=== PATIENT | female | born 1980 | race Caucasian/White ===

== ENCOUNTER 2016-11-12 01:10 | Emergency (ER) | payer BC ==
[~2016-11-12] VITALS: Ht 157.4 cm; Wt 61.7 kg
[~2016-11-12 01:10] MED LIST: ALAVERT D-12 HO1 T12 PO; KENALOG0.5% TP; PREDNISONE10 MG PO; VISTARIL50 MG PO
[2016-11-12] MEDS ORDERED: AUGMENTIN 875-875 MG PO (01:22)
== END 2016-11-12 02:45 | disposition home or self-care (01) ==
LOC: ED 01:10
DX: S61.253A Open bite of left middle finger without damage to nail, initial encounter (principal); W54.0XXA Bitten by dog, initial encounter; Y93.89 Activity, other specified; Y92.9 Unspecified place or not applicable; Y99.9 Unspecified external cause status

== ENCOUNTER → 2019-11-14 | Outpatient (CLI) | payer OTHER ==
[~2019-11-14] MED LIST changes: +AUGMENTIN 875-875 MG PO
== END | disposition home or self-care (01) ==
LOC: CT 08:44
DX: Q07.00 Arnold-Chiari syndrome without spina bifida or hydrocephalus (principal); Z98.890 Other specified postprocedural states

== ENCOUNTER 2019-12-20 18:16 | Emergency (ER) | payer OTHER ==
[~2019-12-20] VITALS: Ht 154.9 cm; Wt 61.7 kg
== END 2019-12-20 22:06 | disposition home or self-care (01) ==
LOC: ED 18:16
DX: T63.441A Toxic effect of venom of bees, accidental (unintentional), initial encounter (principal); J45.909 Unspecified asthma, uncomplicated; F32.9 Major depressive disorder, single episode, unspecified; Z88.8 Allergy status to other drugs, medicaments and biological substances; Z91.030 Bee allergy status; Y92.89 Other specified places as the place of occurrence of the external cause

== ENCOUNTER 2020-08-21 15:25 | Emergency (ER) | payer OTHER | END 2020-08-21 17:15 | disposition home or self-care (01) | LOC: ED 15:25 | DX: T63.441A Toxic effect of venom of bees, accidental (unintentional), initial encounter (principal); T78.2XXA Anaphylactic shock, unspecified, initial encounter; F17.200 Nicotine dependence, unspecified, uncomplicated; Z91.030 Bee allergy status; Z88.8 Allergy status to other drugs, medicaments and biological substances; Z79.899 Other long term (current) drug therapy; X58.XXXA Exposure to other specified factors, initial encounter ==

== ENCOUNTER 2020-08-22 00:52 | Emergency (ER) | payer OTHER ==
[~2020-08-22] VITALS: Wt 57.2 kg
== END 2020-08-22 03:44 | disposition home or self-care (01) ==
LOC: ED 00:52
DX: T78.40XA Allergy, unspecified, initial encounter (principal); Z91.030 Bee allergy status; Z88.8 Allergy status to other drugs, medicaments and biological substances; Z79.899 Other long term (current) drug therapy; X58.XXXA Exposure to other specified factors, initial encounter

== ENCOUNTER 2020-12-12 16:29 | Emergency (ER) | payer OTHER ==
[~2020-12-12] VITALS: Wt 59.0 kg
[2020-12-12] MEDS ORDERED: SEPTDS PO (18:56)
[2020-12-12] MEDS ORDERED: CEPHALEXIN500 M1 PO (18:56)
== END 2020-12-12 19:15 | disposition home or self-care (01) ==
LOC: ED 16:29
DX: L02.01 Cutaneous abscess of face (principal); Z98.51 Tubal ligation status

== ENCOUNTER 2021-08-28 19:42 | Emergency (ER) | payer OTHER ==
[~2021-08-28] VITALS: Ht 154.9 cm; Wt 59.0 kg
[~2021-08-28 19:42] MED LIST changes: +CEPHALEXIN500 M1 PO; +SEPTDS PO
[2021-08-28 20:23] LABS: BILIRUBIN 1+ (Negative); BLOOD 3+ (Negative); CLARITY Cloudy (Clear); COLOR Orange (Yellow); GLUCOSE Negative (Negative); KETONE Negative (Negative); LEUKO ESTERASE 2+ (Negative); NITRITE Positive (Negative)
[2021-08-28 20:48] LABS: BACTERIA 3+; MUCOUS 2+; RBC TNTC rbc/hpf (0-2)
[2021-08-28] MEDS ORDERED: CEPHALEXIN500 M1 PO (21:20)
== END 2021-08-28 21:20 | disposition home or self-care (01) ==
LOC: ED 19:42
PROVIDERS: Emergency Medicine
DX: N39.0 Urinary tract infection, site not specified (principal)

== ENCOUNTER 2021-12-25 19:54 | Emergency (ER) | payer OTHER ==
[~2021-12-25] VITALS: Ht 152 cm; Wt 59.9 kg
[2021-12-26] MEDS ORDERED: PREDNISONE20 M1 PO (16:22)
[2021-12-26] MEDS ORDERED: EPIPEN 2-P0.3 MG/0.3 IJ (16:22)
== END 2021-12-25 22:51 | disposition home or self-care (01) ==
LOC: ED 19:54
DX: T78.2XXA Anaphylactic shock, unspecified, initial encounter (principal); Y92.89 Other specified places as the place of occurrence of the external cause

== ENCOUNTER 2021-12-26 14:07 | Emergency (ER) | payer OTHER ==
[~2021-12-26] VITALS: Wt 59.9 kg
[2021-12-26 15:01] LABS: BASO % 0.1 % (0.0-1.0); HEMATOCRIT 41.2 % (37.0-47.0); LYMPH # 0.7 10*3/uL (1.3-4.4); LYMPH % 5.1 % (27.0-41.0); MEAN CELL VOLUME 93.6 fl (81.0-99.0); MEAN CORPUSCULAR HGB 32.7 pg (27.0-31.0); MEAN PLATELET VOLUME 9.9 fl (9.6-12.3); MONO # 0.7 10*3/uL (0.1-1.0); MONO % 4.6 % (3.0-9.0); NEUT # 12.7 10*3/uL (2.3-7.9); NEUT % 89.8 % (47.0-73.0); PLATELET COUNT AUTOMATED 253 10*3/uL (130-400); RED CELL DISTRI WIDTH 11.8 % (0-14.5); WHITE BLOOD COUNT 14.1 10*3/uL (4.8-10.8)
[2021-12-26 15:42] LABS: ALKALINE PHOSPHATASE 50 U/L (45-117); BUN 11 mg/dl (7-24); CHLORIDE 109 mmol/L (98-107); CREATININE 0.87 mg/dL (0.55-1.02); LIPASE 99 U/L (73-393); POTASSIUM 3.5 mmol/L (3.5-5.1); SGOT/AST 11 IU/L (3-35); SGPT/ALT 15 U/L (12-78); SODIUM 139 mmol/L (136-145)
[2021-12-26 15:46] LABS: BETA-HCG, QUANT < 1.0 mIU/mL (1-3)
[2021-12-26] MEDS ORDERED: PREDNISONE20 M1 PO (16:22)
[2021-12-26] MEDS ORDERED: EPIPEN 2-P0.3 MG/0.3 IJ (16:22)
== END 2021-12-26 16:30 | disposition home or self-care (01) ==
LOC: ED 14:07
PROVIDERS: Emergency Medicine
DX: T78.40XA Allergy, unspecified, initial encounter (principal); Z98.51 Tubal ligation status; X58.XXXA Exposure to other specified factors, initial encounter

== ENCOUNTER 2023-02-18 19:11 | Emergency (ER) | payer BC, OTHER ==
[~2023-02-18] VITALS: Ht 154.9 cm; Wt 72.6 kg
[~2023-02-18 19:11] MED LIST changes: +EPIPEN 2-P0.3 MG/0.3 IJ; +PREDNISONE20 M1 PO
[2023-02-18] MEDS ORDERED: MELOXICAM5 MG PO (20:10)
== END 2023-02-18 20:15 | disposition home or self-care (01) ==
LOC: ED 19:11
DX: S46.912A Strain of unspecified muscle, fascia and tendon at shoulder and upper arm level, left arm, initial encounter (principal); M54.2 Cervicalgia; F32.A Depression, unspecified; J45.909 Unspecified asthma, uncomplicated; M79.7 Fibromyalgia; D64.9 Anemia, unspecified; Z88.8 Allergy status to other drugs, medicaments and biological substances; Z91.012 Allergy to eggs; Z91.018 Allergy to other foods; Z98.51 Tubal ligation status; X58.XXXA Exposure to other specified factors, initial encounter; Y93.89 Activity, other specified; Y92.89 Other specified places as the place of occurrence of the external cause; Y99.8 Other external cause status

== ENCOUNTER → 2023-02-23 | Outpatient (CLI) | payer BC, OTHER ==
[~2023-02-23] MED LIST changes: +MELOXICAM5 MG PO
== END | disposition home or self-care (01) ==
LOC: RAD 10:33
PROVIDERS: ATTEND Family Medicine
DX: M25.511 Pain in right shoulder (principal)

== ENCOUNTER 2023-04-07 16:37 | Emergency (ER) | payer BC, OTHER ==
[~2023-04-07] VITALS: Ht 154.9 cm; Wt 64.4 kg
== END 2023-04-07 17:02 | disposition left against medical advice (07) ==
LOC: ED 16:37
DX: R07.81 Pleurodynia (principal); R11.2 Nausea with vomiting, unspecified; R19.7 Diarrhea, unspecified; Z91.012 Allergy to eggs; Z91.018 Allergy to other foods; Z53.21 Procedure and treatment not carried out due to patient leaving prior to being seen by health care provider

== ENCOUNTER 2023-04-10 21:57 | Emergency (ER) | payer BC, OTHER ==
[~2023-04-10] VITALS: Ht 154.9 cm; Wt 64.4 kg
[2023-04-10] MEDS ORDERED: OMEPRAZOLE MAGN20 M2 PO (22:13)
[2023-04-10] MEDS ORDERED: EPIPEN 2-P0.3 MG/0.3 IJ (22:14)
[2023-04-10] MEDS ORDERED: PROVENTIL HFA6.7 GM INH (22:15)
[2023-04-10 22:30] LABS: BASO # 0.1 10*3/uL (0.0-0.1); BASO % 0.7 % (0.0-1.0); EOS # 0.4 10*3/uL (0.0-0.4); EOS % 4.7 % (1.0-4.0); HEMATOCRIT 39.9 % (37.0-47.0); LYMPH # 2.1 10*3/uL (1.3-4.4); LYMPH % 23.2 % (27.0-41.0); MEAN CELL VOLUME 95.2 fl (81.0-99.0); MEAN CORPUSCULAR HGB 32.7 pg (27.0-31.0); MEAN CORPUSCULAR HGB CONC 34.3 g/dl (33.0-37.0); MEAN PLATELET VOLUME 9.7 fl (9.6-12.3); MONO # 0.7 10*3/uL (0.1-1.0); MONO % 7.6 % (3.0-9.0); NEUT # 5.8 10*3/uL (2.3-7.9); NEUT % 63.5 % (47.0-73.0); PLATELET COUNT AUTOMATED 249 10*3/uL (130-400); RED BLOOD COUNT 4.19 10*6/uL (4.10-5.10); WHITE BLOOD COUNT 9.1 10*3/uL (4.8-10.8)
[2023-04-10 22:43] LABS: BILIRUBIN Negative (Negative); BLOOD 1+ (Negative); CLARITY Clear (Clear); COLOR Yellow (Yellow); GLUCOSE Negative (Negative); KETONE Trace (Negative); LEUKO ESTERASE Negative (Negative); NITRITE Negative (Negative); PH 6.5 (4.5-8.0); SPECIFIC GRAVITY <= 1.005 (1.001-1.030)
[2023-04-10 22:45] LABS: ACT PARTIAL THROMBO TIME 25.7 SECONDS (20.0-32.1)
[2023-04-10 22:52] LABS: ALKALINE PHOSPHATASE 53 U/L (46-116); BUN 7 mg/dl (9-23); CHLORIDE 105 mmol/L (98-107); LIPASE 32 U/L (12-53); POTASSIUM 3.3 mmol/L (3.4-5.1); SGPT/ALT 7 U/L (5-49); TOTAL PROTEIN 6.8 gm/dL (6.0-8.0)
[2023-04-10 22:56] LABS: WBC 0-2 wbc/hpf (0-5)
[2023-04-11] MEDS ORDERED: CIPRO500 MG PO (01:12)
[2023-04-11] MEDS ORDERED: METRONIDAZOLE500 M1 PO (01:12)
== END 2023-04-11 01:15 | disposition home or self-care (01) ==
LOC: ED 21:57
PROVIDERS: Internal Medicine
DX: K52.9 Noninfective gastroenteritis and colitis, unspecified (principal); R11.2 Nausea with vomiting, unspecified; F17.200 Nicotine dependence, unspecified, uncomplicated; Z91.018 Allergy to other foods; Z91.012 Allergy to eggs; Z79.899 Other long term (current) drug therapy; Z98.51 Tubal ligation status

== ENCOUNTER → 2024-08-25 | Outpatient (CLI) | payer BC ==
[~2024-08-25] MED LIST changes: +CIPRO500 MG PO; +METRONIDAZOLE500 M1 PO; +OMEPRAZOLE MAGN20 M2 PO; +PROVENTIL HFA6.7 GM INH
[2024-08-25 08:05] LABS: BASO # 0.1 10*3/uL (0.0-0.1); BASO % 0.7 % (0.0-1.0); EOS # 0.8 10*3/uL (0.0-0.4); EOS % 10.6 % (1.0-4.0); MEAN CELL VOLUME 96.7 fl (81.0-99.0); MEAN CORPUSCULAR HGB 31.9 pg (27.0-31.0); MEAN PLATELET VOLUME 9.7 fl (9.6-12.3); MONO # 0.7 10*3/uL (0.1-1.0); MONO % 8.9 % (3.0-9.0); NEUT % 52.6 % (47.0-73.0); PLATELET COUNT AUTOMATED 261 10*3/uL (130-400); RED BLOOD COUNT 4.55 10*6/uL (4.10-5.10); RED CELL DISTRI WIDTH 12.1 % (0-14.5); WHITE BLOOD COUNT 7.6 10*3/uL (4.8-10.8)
[2024-08-25 08:43] LABS: VITAMIN D, 25-HYDROXY 43.2 ng/mL (30-100)
[2024-08-25 08:45] LABS: ALKALINE PHOSPHATASE 60 U/L (46-116); BUN 13 mg/dl (9-23); CHLORIDE 103 mmol/L (98-107); CHOLESTEROL 192 mg/dL (<200); FREE T4 1.16 ng/dl (0.89-1.76); LDL CHOLESTEROL 116 mg/dL (9-159); POTASSIUM 4.1 mmol/L (3.4-5.1); SGPT/ALT < 7 U/L (5-49); TOTAL PROTEIN 6.8 gm/dL (6.0-8.0); TRIGLYCERIDES 79 mg/dl (<150)
== END | disposition home or self-care (01) ==
LOC: LAB 07:41
PROVIDERS: ATTEND Internal Medicine
DX: F32.A Depression, unspecified (principal)

== ENCOUNTER → 2024-09-15 | Outpatient (CLI) | payer BC | END | disposition home or self-care (01) | LOC: MAMMO 02:54 | PROVIDERS: ATTEND Internal Medicine | DX: Z12.31 Encounter for screening mammogram for malignant neoplasm of breast (principal); R92.30 Dense breasts, unspecified; N63.20 Unspecified lump in the left breast, unspecified quadrant ==

== ENCOUNTER → 2024-10-20 | Outpatient (CLI) | payer BC | END | disposition home or self-care (01) | LOC: US 10-07 13:30 | PROVIDERS: ATTEND Internal Medicine | DX: N60.02 Solitary cyst of left breast (principal); N60.01 Solitary cyst of right breast; R92.343 Mammographic extreme density, bilateral breasts ==